=== PATIENT | male | born 1980 | race Caucasian/White ===

== ENCOUNTER 2018-08-21 13:49 | Emergency (ER) | payer OTHER ==
[~2018-08-21] VITALS: Ht 180.3 cm; Wt 69.1 kg
[2018-08-21 13:55] VITALS: BP 138/83
[2018-08-21] MEDS ORDERED: NAPROXEN500 MG PO (15:07)
== END 2018-08-21 15:24 | disposition home or self-care (01) ==
LOC: ED 13:49
DX: M25.532 Pain in left wrist (principal); F17.210 Nicotine dependence, cigarettes, uncomplicated; R20.0 Anesthesia of skin; R20.2 Paresthesia of skin
CPT/HCPCS: J1885

== ENCOUNTER 2020-05-06 19:19 | Emergency (ER) | payer OTHER ==
[~2020-05-06] VITALS: Wt 76.3 kg
[~2020-05-06 19:19] MED LIST: NAPROXEN500 MG PO
[2020-05-06] MEDS ORDERED: GLUCOSAMIN-CHO1 EACH PO (19:54)
[2020-05-06] MEDS ORDERED: GUMMI BEAR MUL1 EACH PO (19:54)
[2020-05-06 21:38] LABS: BASO # 0.1 (0.02-0.10); EOS # 0.3 (0.04-0.40); EOS % 2.9 % (0.0-4.0); HEMATOCRIT 42.3 % (42.0-52.0); HEMOGLOBIN 14.2 g/dL (13.5-18.0); LYMPH# 3.1 (1.50-4.00); MEAN CELL VOLUME 86 fl (78-100); MEAN CORPUSCULAR HEMOGLOBIN 29 pg (27-31); MEAN CORPUSCULAR HGB CONC 34 g/dL (33-37); MEAN PLATELET VOLUME 9.5 fl (7.4-10.4); MONO # 1.1 (0.20-0.80); NEU # 5.6 (1.40-6.50); PLATELET COUNT 388 K/mm3 (130-400); RED BLOOD COUNT 4.94 M/mm3 (4.20-5.60); RED CELL DISTRIBUTION WIDTH 14.5 % (11.5-14.5); WHITE BLOOD COUNT 10.2 K/mm3 (4.8-10.8)
[2020-05-06 21:45] LABS: ALBUMIN 4.6 g/dL (3.5-5.0); POTASSIUM 3.7 mmol/L (3.5-5.1); SODIUM 140 mmol/L (136-145)
[2020-05-06 21:46] LABS: CALCIUM 9.3 mg/dL (8.3-10.5)
[2020-05-06 21:47] LABS: GLUCOSE 98 mg/dL (75-110)
[2020-05-06 21:48] LABS: TOTAL PROTEIN 7.5 g/dL (6.4-8.3)
[2020-05-06 21:49] LABS: CARBON DIOXIDE 23 mmol/L (22-29); TOTAL BILIRUBIN 0.5 mg/dL (0.2-1.2)
[2020-05-06 21:53] LABS: AST-SGOT 18 U/L (5-34)
[2020-05-06 21:54] LABS: ALT/SGPT 16 U/L (0-55)
[2020-05-06 22:06] LABS: TROPONIN-I < 0.03 ng/mL (<0.030)
[2020-05-06 22:07] LABS: D-DIMER 0.28 mg/L FEU (0.15-0.50)
[2020-05-06 22:37] VITALS: BP 148/87
== END 2020-05-06 22:44 | disposition home or self-care (01) ==
LOC: ED 19:19
PROVIDERS: Nurse Practitioner Family
DX: R07.89 Other chest pain (principal); F17.210 Nicotine dependence, cigarettes, uncomplicated
CPT/HCPCS: J1885; J7120

== ENCOUNTER → 2020-09-16 | Outpatient (CLI) | payer OTHER ==
[~2020-09-16] MED LIST changes: +GLUCOSAMIN-CHO1 EACH PO; +GUMMI BEAR MUL1 EACH PO
== END ==
LOC: LAB 08:28
DX: H57.89 Other specified disorders of eye and adnexa (principal); R51.9 Headache, unspecified; R68.83 Chills (without fever); R09.89 Other specified symptoms and signs involving the circulatory and respiratory systems; R53.83 Other fatigue; R05 Cough; R09.81 Nasal congestion; Z20.828 Contact with and (suspected) exposure to other viral communicable diseases

== ENCOUNTER → 2021-07-02 | Outpatient (CLI) | payer OTHER | LOC: LAB 12:46 | DX: Z20.822 Contact with and (suspected) exposure to COVID-19 (principal) ==

== ENCOUNTER → 2022-06-29 | Outpatient (CLI) | payer OTHER | LOC: RAD 17:03 | DX: M51.34 Other intervertebral disc degeneration, thoracic region (principal) ==

== ENCOUNTER → 2022-09-17 | Outpatient (CLI) | payer OTHER | LOC: RAD 09:49 | DX: M54.12 Radiculopathy, cervical region (principal) ==

== ENCOUNTER → 2024-10-19 | Outpatient (CLI) | payer OTHER ==
[~2024-10-19] MED LIST changes: +CYCLOBENZAPRINE10 M1 PO; +GOOD NEIGHBOR200 M3 PO; +LEXAPRO5 MG PO; +OMEPRAZOLE40 MG PO; +PERCOCET 325 MG1 TA2 PO; +PROAIR HFA0.09 MG/AC IH; +ROSUVASTATIN CA20 MG PO; +TAMIFLU 75MG75 MG PO; +TYLENOL 325MG325 MG PO; +WELLBUTRIN XL150 M2 PO; +ZOFRAN ODT4 MG PO
[2024-10-19 09:23] LABS: BASO # 0.05 K/mm3 (0.02-0.10); EOS # 0.24 K/mm3 (0.04-0.40); EOS % 1.3 % (0.0-4.0); HEMATOCRIT 47.8 % (42.0-52.0); HEMOGLOBIN 15.7 g/dL (13.5-18.0); LYMPH# 2.47 K/mm3 (1.50-4.00); MEAN CELL VOLUME 86 fl (78-100); MEAN CORPUSCULAR HEMOGLOBIN 28 pg (27-31); MEAN CORPUSCULAR HGB CONC 33 g/dL (33-37); MEAN PLATELET VOLUME 8.6 fl (7.4-10.4); NEU # 14.03 K/mm3 (1.40-6.50); PLATELET COUNT 491 K/mm3 (130-400); RED BLOOD COUNT 5.54 M/mm3 (4.20-5.60); RED CELL DISTRIBUTION WIDTH 13.9 % (11.5-14.5); WHITE BLOOD COUNT 17.9 K/mm3 (4.8-10.8)
[2024-10-19 09:28] LABS: ALBUMIN 4.7 g/dL (3.5-5.0)
[2024-10-19 09:29] LABS: CALCIUM 9.9 mg/dL (8.3-10.5)
[2024-10-19 09:30] LABS: TOTAL PROTEIN 7.7 g/dL (6.4-8.3)
[2024-10-19 09:32] LABS: TOTAL BILIRUBIN 0.7 mg/dL (0.2-1.2)
== END ==
LOC: LAB 08:59
PROVIDERS: Internal Medicine
DX: Z00.00 Encounter for general adult medical examination without abnormal findings (principal); Z12.5 Encounter for screening for malignant neoplasm of prostate

== ENCOUNTER 2024-12-18 10:23 | Emergency (ER) | payer SELFPAY ==
[~2024-12-18] VITALS: Ht 180.3 cm; Wt 92.5 kg
[2024-12-18] MEDS ORDERED: LORazepam 0.5 MG TABLET PO ONE (11:30)
[2024-12-18] MEDS ORDERED: Ketorolac 30 MG/ML VIAL IM ONE (11:30)
[2024-12-18 12:23] LABS: ALBUMIN 4.4 g/dL (3.5-5.0); BASO # 0.02 K/mm3 (0.02-0.10); EOS # 0.29 K/mm3 (0.04-0.40); EOS % 1.6 % (0.0-4.0); HEMATOCRIT 48.6 % (42.0-52.0); HEMOGLOBIN 15.9 g/dL (13.5-18.0); LYMPH# 3.01 K/mm3 (1.50-4.00); MEAN CELL VOLUME 87 fl (78-100); MEAN CORPUSCULAR HEMOGLOBIN 28 pg (27-31); MEAN CORPUSCULAR HGB CONC 33 g/dL (33-37); MEAN PLATELET VOLUME 8.7 fl (7.4-10.4); MONO # 1.19 K/mm3 (0.20-0.80); NEU # 14.15 K/mm3 (1.40-6.50); PLATELET COUNT 480 K/mm3 (130-400); RED BLOOD COUNT 5.61 M/mm3 (4.20-5.60); RED CELL DISTRIBUTION WIDTH 14.1 % (11.5-14.5); WHITE BLOOD COUNT 18.7 K/mm3 (4.8-10.8)
[2024-12-18 12:24] LABS: CALCIUM 9.6 mg/dL (8.3-10.5)
[2024-12-18 12:26] LABS: TOTAL PROTEIN 7.9 g/dL (6.4-8.3)
[2024-12-18 12:28] LABS: TOTAL BILIRUBIN 0.7 mg/dL (0.2-1.2)
[2024-12-18 13:33] VITALS: BP 137/98
== END 2024-12-18 13:35 | disposition home or self-care (01) ==
LOC: ED 10:23
PROVIDERS: Physician Assistant
DX: R20.2 Paresthesia of skin (principal)
CPT/HCPCS: J1885

== ENCOUNTER → 2024-12-20 | Outpatient (CLI) | payer BC ==
[2024-12-21 20:21] LABS: FOLATE (FOLIC ACID) 6.6 ng/mL (2.0-20.0)
[2024-12-26 13:09] LABS: VITAMIN B1 146.1 nmol/L (())
== END ==
LOC: LAB 08:46
PROVIDERS: Internal Medicine
DX: E78.2 Mixed hyperlipidemia (principal); K90.9 Intestinal malabsorption, unspecified

== ENCOUNTER → 2025-01-01 | Outpatient (CLI) | payer BC ==
[~2025-01-01] MED LIST changes: +Gadoterate 20 ML VIAL IV ONE
== END ==
LOC: RAD 12-28 09:45
DX: R41.82 Altered mental status, unspecified (principal)
CPT/HCPCS: A9575